=== PATIENT | female | born 1965 | race Caucasian/White ===

== ENCOUNTER 2019-01-09 09:07 | Emergency (ER) | payer OTHER ==
[~2019-01-09 09:07] MED LIST: Sodium Chloride 0.9% 1,000 ML BAG ONE
[2019-01-09] MEDS ORDERED: Midazolam HCl 10 mg/2 ml Vial ONE (09:41)
[2019-01-09 09:53] LABS: Bilirubin Small (Negative); Blood, Urine Negative (Negative); Clarity Clear (Clear); Glucose, Urine (Dipstick) Negative (Negative); Leukocyte Negative (Negative); Nitrite Negative (Negative); Protein, Urine (Dipstick) Trace mg/dL (Neg-Trace); Specific Gravity, Urine 1.015 (1.005-1.030); Urobilinogen > or = 8.0 mg/dL (0.2-1.0); pH, Urine 6.5 (5.0-9.0)
[2019-01-09 10:00] LABS: Cocaine Metabolite Screen Detected (NotDetected); THC/Cannabinoid Screen Detected (NotDetected)
[2019-01-09 10:01] LABS: Amphetamine Detected (NotDetected); Barbiturates Screen Not Detected (NotDetected); Benzodiazepine Screen Not Detected (NotDetected); Medtox Control Line Valid? VALID (VALID); Methadone Not Detected (NotDetected); Methamphetamine Detected (NotDetected); Opiate Screen Detected (NotDetected); Oxycodone Screen Not Detected (NotDetected); Phencyclidine (PCP) Not Detected (NotDetected); Tricyclic Screen Not Detected (NotDetected)
[2019-01-09] MEDS ORDERED: Acetaminophen 650 MG Suppository ONE (10:01)
[2019-01-09] MEDS ORDERED: Iopamidol 370 76% 75 ML VIAL FS ONE (10:09)
[2019-01-09 10:36] LABS: ALT (SGPT) 37 U/L (8-55); AST (SGOT) 49 U/L (5-34); Albumin 3.6 g/dL (3.5-5.0); Alkaline Phosphatase 121 U/L (40-150); Anion Gap 13 mmol/L (10-20); BUN (Urea Nitrogen) 19 mg/dL (9.8-20.1); Bilirubin, Total 3.3 mg/dL (0.2-1.2); Calc. Creatinine Clearance 0 mL/min (70-130); Calcium 8.7 mg/dL (7.8-10.44); Carbon Dioxide 24 mmol/L (22-29); Chloride 110 mmol/L (98-107); Estimated GFR-MDRD 78; Globulin 2.9 g/dL (2.4-3.5); Glucose 115 mg/dL (70-105); Potassium 3.3 mmol/L (3.5-5.1); Protein, Total 6.5 g/dL (6.0-8.3); Sodium 144 mmol/L (136-145)
[2019-01-09 10:37] LABS: Acetaminophen Less than 6.0 mcg/mL (10.0-30.0); Alcohol Less than 10 mg/dL (Less than 10); CK (CPK) 505 U/L (29-168); Salicylate Less than 8.0 mg/dL (15.0-30.0)
[2019-01-09 10:38] LABS: #Lymphocytes 1.3 thou/uL (1.20-3.40); #Monocytes 0.5 thou/uL (0.11-0.59); #Neutrophils 7.2 thou/uL (1.40-6.50); %Basophils 0.3 % (0.0-1.0); %Lymphocytes 14.7 % (21.0-51.0); %Monocytes 5.2 % (0.0-10.0); %Neutrophils 79.8 % (42.0-75.0); Hemoglobin 14.3 g/dL (12.0-16.0); Mean Corpuscular HGB CONC 32.8 g/dL (32.0-36.0); Mean Corpuscular Hemoglobin 30.9 pg (27.0-31.0); Mean Corpuscular Volume 94.2 fL (78.0-98.0); Platelet Count 93 thou/uL (130-400); Platelet Morphology Comment Appears Decreased; RBC Distribution Width 13.3 % (11.5-14.5); Red Blood Cell (RBC) Count 4.63 mill/uL (4.20-5.40)
--- NOTE | 2019-01-09 10:54 | CT ---
CT OF THE BRAIN WITHOUT CONTRAST: Date: 01/09/19 COMPARISON: 05/24/16. HISTORY: Unable to communicate. custodial patient. Altered mental status. Unknown trauma. TECHNIQUE: Multiple contiguous axial images were obtained in a CT of the brain without contrast. FINDINGS: The brain is normal in morphology and attenuation without focal lesions or confluent areas of infarct ion. There is no evidence of hydrocephalus, intracranial hemorrhage, or extra-axial fluid collection. The calvarium and overlying soft tissues are unremarkable. The visualized paranasal sinuses and masto id air cells are well aerated. IMPRESSION: No evidence of acute intracranial abnormality. POS: [facility]
--- NOTE | 2019-01-09 10:58 | CT ---
CT OF FACIAL BONES: Date: 01/09/19 COMPARISON: None. HISTORY: Injury, trauma, pain. TECHNIQUE: Axial CT imaging obtained at 2.5 mm intervals through the facial bones without contrast with coronal and sagittal reformatted imaging. FINDINGS: The imaged brain parenchyma demonstrates a mild degree of diffuse cerebral volume loss. The frontal sinuses, maxillary sinuses, ethmoid air cells, sphenoid sinuses, and imaged mastoid air c ells appear grossly unremarkable. 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 There is no evidence for acute fracture of either nasal bone or zygomatic arch. Pterygoid plates appe ar intact. Motion artifact limits detailed assessment of the mandible. No mandibular fracture or evid ence of temporomandibular joint dislocation is evident within the limitations of this exam. Motion ar tifact limits detailed assessment of the upper cervical spine. There is degenerative change at the at lantoaxial interspace. The coronal reformatted imaging demonstrates no evidence for an acute fracture of the orbital floor or medial orbital wall on either side. IMPRESSION: Chronic findings as described above. No acute fracture or evidence of dislocation. POS: [facility]
[2019-01-09] MEDS ORDERED: metroNIDAZOLE 500 MG/100 ML BAG ONE (11:12)
--- NOTE | 2019-01-09 11:24 | CT ---
CT CHEST AND ABDOMEN AND PELVIS WITH CONTRAST: HISTORY: Pain to palpation. Altered mental status. Pain over all quadrants. FINDINGS: CHEST: Contrast enhanced CT images of the chest and abdomen and pelvis demonstrate right 2nd and 3rd rib plates with screws in place. The mediastinum is unremarkable. No evidence of axillary or hilar lymphadenopathy is seen. No definite evidence of pulmonary parenchymal lesions seen. Numerous left upper extremity collateral vessels seen. This may represent left subclavian venous stenosis with se condary collateral formation. ABDOMEN AND PELVIS: The liver and spleen are unremarkable. The gallbladder and pancreas are unremar kable. The adrenal glands are unremarkable. The kidneys are unremarkable. No dilated loops of smal l bowel seen. A normal appendix is visualized. There is abnormal thickening of the colon, involving the ascending, transverse and descending colon. This may represent possible changes of colitis. A left SI joint transosseous fusion screw is in place. Left hip arthroplasty changes and hardware in p lace. IMPRESSION: Abnormal thickening of the colonic wall, concerning for colitis. POS: [facility]
== END 2019-01-09 11:44 | disposition short-term general hospital (02) ==
LOC: MADERS 09:07
DX: F15.10 Other stimulant abuse, uncomplicated (principal); E05.90 Thyrotoxicosis, unspecified without thyrotoxic crisis or storm; E03.9 Hypothyroidism, unspecified; E78.5 Hyperlipidemia, unspecified; J45.909 Unspecified asthma, uncomplicated; F20.9 Schizophrenia, unspecified; K52.9 Noninfective gastroenteritis and colitis, unspecified
CPT/HCPCS: 51702; 70450; 70486; 71260; 74177; 80053; 80306; 80307; 81003; 82550; 83605; 84443; 84484; 85025; 87040; 87077; 87086; 87149; 87186; 87804; 93005; 96361; 96365; 96375; 96376; J2250; J7050

== ENCOUNTER 2019-03-23 13:26 | Emergency (ER) | payer OTHER | END 2019-03-23 14:40 | disposition home or self-care (01) | LOC: MADERS 13:26 | DX: Z76.0 Encounter for issue of repeat prescription (principal); E03.9 Hypothyroidism, unspecified; E78.5 Hyperlipidemia, unspecified; J45.909 Unspecified asthma, uncomplicated; F41.9 Anxiety disorder, unspecified; F20.9 Schizophrenia, unspecified; F31.9 Bipolar disorder, unspecified; F17.210 Nicotine dependence, cigarettes, uncomplicated; Z79.899 Other long term (current) drug therapy | CPT/HCPCS: 99281 ==

== ENCOUNTER 2019-04-24 08:01 | Emergency (ER) | payer OTHER | END 2019-04-24 08:45 | disposition home or self-care (01) | LOC: MADERS 08:01 | DX: Z76.0 Encounter for issue of repeat prescription (principal); E03.9 Hypothyroidism, unspecified; E78.5 Hyperlipidemia, unspecified; J44.9 Chronic obstructive pulmonary disease, unspecified; F41.9 Anxiety disorder, unspecified; F20.9 Schizophrenia, unspecified; F31.9 Bipolar disorder, unspecified; F17.210 Nicotine dependence, cigarettes, uncomplicated; Z79.899 Other long term (current) drug therapy | CPT/HCPCS: 99281 ==

== ENCOUNTER 2019-09-25 20:04 | Emergency (ER) | payer OTHER ==
[~2019-09-25 20:04] MED LIST changes: +Norepinephrine 4 MG/4 ML VIAL ONE; -Sodium Chloride 0.9% 1,000 ML BAG ONE
[2019-09-25] MEDS ORDERED: Ondansetron PF 4 MG/2 ML Vial ONE (20:22)
[2019-09-25] MEDS ORDERED: Sodium Chloride 0.9% 1,000 ML ONE ×4 (20:34→21:52)
[2019-09-25] MEDS ORDERED: Norepinephrine 4 MG/4 ML VIAL ONE ×2 (21:36→22:25)
[2019-09-25] MEDS ORDERED: Piperacillin/Tazobactam 4.5 GM VIAL ONE (21:36)
[2019-09-25] MEDS ORDERED: Sodium Chloride 0.9% 100 ML ONE (21:37)
[2019-09-25 21:39] LABS: #Lymphocytes 1.4 thou/uL (1.20-3.40); #Monocytes 0.4 thou/uL (0.11-0.59); #Neutrophils 4.5 thou/uL (1.40-6.50); %Basophils 0.6 % (0.0-1.0); %Eosinophils 0.3 % (0.0-10.0); %Lymphocytes 21.7 % (21.0-51.0); %Monocytes 5.8 % (0.0-10.0); %Neutrophils 71.5 % (42.0-75.0); Hemoglobin 9.3 g/dL (12.0-16.0); Mean Corpuscular HGB CONC 31.4 g/dL (32.0-36.0); Mean Corpuscular Hemoglobin 30.4 pg (27.0-31.0); Mean Corpuscular Volume 96.8 fL (78.0-98.0); Mean Platelet Volume 8.2 fL (7.4-10.4); RBC Distribution Width 13.7 % (11.5-14.5); Red Blood Cell (RBC) Count 3.06 mill/uL (4.20-5.40); White Blood Cell (WBC) Count 6.2 thou/uL (4.8-10.8)
[2019-09-25 21:45] LABS: Bilirubin Moderate (Negative); Blood, Urine Negative (Negative); Clarity Slightly Cloudy (Clear); Glucose, Urine (Dipstick) 100 mg/dL (Negative); Leukocyte Negative (Negative); Nitrite Positive (Negative); Protein, Urine (Dipstick) 100 mg/dL (Neg-Trace)
[2019-09-25 21:51] LABS: ALT (SGPT) 45 U/L (8-55); AST (SGOT) 47 U/L (5-34); Albumin 2.5 g/dL (3.5-5.0); Alkaline Phosphatase 93 U/L (40-110); Anion Gap 13 mmol/L (10-20); BUN (Urea Nitrogen) 11 mg/dL (9.8-20.1); Bilirubin, Total 2.9 mg/dL (0.2-1.2); Calc. Creatinine Clearance 0 mL/min (70-130); Carbon Dioxide 23 mmol/L (22-29); Chloride 112 mmol/L (98-107); Estimated GFR-MDRD 52; Globulin 2.2 g/dL (2.4-3.5); Glucose 144 mg/dL (70-105); Lipase 7 U/L (8-78); Other Microscopic Description Less than 2 mL rec'd; Potassium 3.4 mmol/L (3.5-5.1); Protein, Total 4.7 g/dL (6.0-8.3); Sodium 145 mmol/L (136-145)
[2019-09-25 21:59] LABS: RBC/HPF None Seen HPF (0-3)
[2019-09-25 22:00] LABS: Bacteria/HPF Rare-Few HPF (None Seen); Squamous Epithelial 0-3 HPF (0-3); WBC/HPF 0-3 HPF (0-3)
--- NOTE | 2019-09-25 22:14 | CT ---
CT abdomen and pelvis noncontrast HISTORY: Abdomen pain. COMPARISON: 01/09/2019. FINDINGS: Each renal collecting system, ureter, and urinary bladder are decompressed without stone ev ident. Lack of contrast limits evaluation for other abnormalities. Gallbladder is distended up to 11.2 cm wi thout focal abnormality apparent. Small amount of slightly hyperdense fluid surrounds the liver and spleen. More hyperdense fluid is present within the pelvis. Just above the level of the uterus is a c luster of cystic lesions. Overall, this cluster of cysts measures up to 10.9 cm x 5.3 cm on the axial images. The largest of the individual cysts measures up to 4.5 cm. On the prior CT, only a very small follicle was evident at this level. There are prominent degenerative changes of lumbar spine. Calcification within the arterial structures. IMPRESSION: Hyperdense fluid within the pelvis and, to a lesser extent, the abdomen, is favored to be blood. Most likely source is the new multiloculated cystic mass within the pelvis. 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 Gallbladder distention without other abnormality. Clinical correlation regarding other signs and symp toms of acute cholecystitis is required. Findings were called to Dr. Ravi in [place] at the time of the exam. 2004 hours. Code CR. Transcribed Date/Time: 09/25/2019 11:10 PM
[2019-09-25 22:18] LABS: Manual Diff?? NO
[2019-09-25 22:28] LABS: CKMB 0.4 ng/mL (0-6.6)
== END 2019-09-25 22:08 | disposition short-term general hospital (02) ==
LOC: MADERS 20:04
DX: A41.9 Sepsis, unspecified organism (principal); R65.21 Severe sepsis with septic shock; R11.2 Nausea with vomiting, unspecified; R10.9 Unspecified abdominal pain; E03.9 Hypothyroidism, unspecified; E78.5 Hyperlipidemia, unspecified; E78.00 Pure hypercholesterolemia, unspecified; J44.9 Chronic obstructive pulmonary disease, unspecified; F41.9 Anxiety disorder, unspecified; F20.9 Schizophrenia, unspecified; F31.9 Bipolar disorder, unspecified; F17.210 Nicotine dependence, cigarettes, uncomplicated; Z79.899 Other long term (current) drug therapy; Z79.891 Long term (current) use of opiate analgesic
CPT/HCPCS: 74176; 80053; 81003; 81015; 82553; 83605; 83690; 84484; 85025; 87086; 93005; A4353; J2405; J2543; J3490; J7050; J7070

== ENCOUNTER 2020-05-15 09:04 | Emergency (ER) | payer OTHER ==
[2020-05-15] MEDS ORDERED: Lorazepam 2 MG/ML VIAL ONE (09:33)
[2020-05-15] MEDS ORDERED: Sodium Chloride 0.9% 0 ML ONE (09:33)
[2020-05-15 10:00] LABS: #Basophils 0.2 thou/uL (0.0-0.2); #Eosinphils 0.3 thou/uL (0.0-0.7); #Lymphocytes 2.8 thou/uL (1.20-3.40); #Monocytes 1.2 thou/uL (0.11-0.59); #Neutrophils 14.9 thou/uL (1.40-6.50); %Basophils 0.8 % (0.0-1.0); %Eosinophils 1.4 % (0.0-10.0); %Lymphocytes 14.6 % (21.0-51.0); %Neutrophils 77.2 % (42.0-75.0); Mean Corpuscular HGB CONC 30.7 g/dL (32.0-36.0); Mean Corpuscular Hemoglobin 27.8 pg (27.0-31.0); Mean Corpuscular Volume 90.4 fL (78.0-98.0); Platelet Count 181 thou/uL (130-400); Red Blood Cell (RBC) Count 5.76 mill/uL (4.20-5.40); White Blood Cell (WBC) Count 19.3 thou/uL (4.8-10.8)
[2020-05-15 10:19] LABS: ALT (SGPT) 59 U/L (8-55); AST (SGOT) 53 U/L (5-34); Albumin 4.4 g/dL (3.5-5.0); Alkaline Phosphatase 131 U/L (40-110); Anion Gap 21 mmol/L (10-20); BUN (Urea Nitrogen) 16 mg/dL (9.8-20.1); Bilirubin, Total 1.7 mg/dL (0.2-1.2); Calc. Creatinine Clearance 0 mL/min (70-130); Calcium 9.7 mg/dL (7.8-10.44); Carbon Dioxide 22 mmol/L (22-29); Chloride 103 mmol/L (98-107); Estimated GFR-MDRD 31; Globulin 3.3 g/dL (2.4-3.5); Glucose 110 mg/dL (70-105); Potassium 3.5 mmol/L (3.5-5.1); Protein, Total 7.7 g/dL (6.0-8.3); Sodium 142 mmol/L (136-145)
[2020-05-15 10:20] LABS: Acetaminophen Less than 6.0 mcg/mL (10.0-30.0); Alcohol Less than 10 mg/dL (Less than 10); CK (CPK) 143 U/L (29-168); Salicylate Less than 8.0 mg/dL (15.0-30.0)
[2020-05-15 10:43] LABS: CKMB 1.8 ng/mL (0-6.6)
[2020-05-15] MEDS ORDERED: Aspirin 325 MG TAB ONE (11:31)
[2020-05-15 11:42] LABS: Bilirubin Moderate (Negative); Blood, Urine Negative (Negative); Glucose, Urine (Dipstick) Negative (Negative); Ketone, Urine Negative (Negative); Leukocyte Negative (Negative); Nitrite Negative (Negative); Protein, Urine (Dipstick) 100 mg/dL (Neg-Trace)
[2020-05-15 11:44] LABS: Clarity Hazy (Clear); Specific Gravity, Urine 1.025 (1.002-1.036)
[2020-05-15 11:49] LABS: Cocaine Metabolite Screen Not Detected (NotDetected); Methamphetamine Detected (NotDetected); Phencyclidine (PCP) Detected (NotDetected); THC/Cannabinoid Screen Detected (NotDetected)
[2020-05-15 11:50] LABS: Amphetamine Detected (NotDetected); Barbiturates Screen Not Detected (NotDetected); Benzodiazepine Screen Detected (NotDetected); Medtox Control Line Valid? VALID (VALID); Methadone Not Detected (NotDetected); Opiate Screen Detected (NotDetected); Oxycodone Screen Not Detected (NotDetected); Tricyclic Screen Detected (NotDetected)
[2020-05-15 12:00] LABS: Bacteria/HPF Rare-Few HPF (None Seen); Mucous/LPF 2+ LPF (<2+); RBC/HPF 0-3 HPF (0-3); WBC/HPF None Seen HPF (0-3)
== END 2020-05-15 12:35 | disposition short-term general hospital (02) ==
LOC: MADERS 09:04
DX: R41.0 Disorientation, unspecified (principal); F15.10 Other stimulant abuse, uncomplicated; F11.10 Opioid abuse, uncomplicated; F12.10 Cannabis abuse, uncomplicated; F19.10 Other psychoactive substance abuse, uncomplicated; F13.10 Sedative, hypnotic or anxiolytic abuse, uncomplicated; R74.8 Abnormal levels of other serum enzymes; E03.9 Hypothyroidism, unspecified; E78.5 Hyperlipidemia, unspecified; E78.00 Pure hypercholesterolemia, unspecified; J44.9 Chronic obstructive pulmonary disease, unspecified; F17.210 Nicotine dependence, cigarettes, uncomplicated; Z79.899 Other long term (current) drug therapy
CPT/HCPCS: 36415; 51701; 80053; 80306; 80307; 81003; 81015; 82550; 82553; 84443; 84484; 85025; 93005; 94760; J2060; J7050

== ENCOUNTER 2020-05-20 11:49 | Emergency (ER) | payer OTHER ==
[~2020-05-20 11:49] MED LIST changes: -Norepinephrine 4 MG/4 ML VIAL ONE; +Sodium Chloride 0.9% 1,000 ML BAG ONE
[2020-05-20 12:27] LABS: #Basophils 0.1 thou/uL (0.0-0.2); #Eosinphils 0.1 thou/uL (0.0-0.7); #Lymphocytes 1.4 thou/uL (1.20-3.40); #Monocytes 0.3 thou/uL (0.11-0.59); #Neutrophils 3.8 thou/uL (1.40-6.50); %Basophils 1.1 % (0.0-1.0); %Eosinophils 1.6 % (0.0-10.0); %Lymphocytes 24.2 % (21.0-51.0); %Monocytes 5.1 % (0.0-10.0); %Neutrophils 68.1 % (42.0-75.0); Hemoglobin 12.9 g/dL (12.0-16.0); Mean Corpuscular HGB CONC 31.6 g/dL (32.0-36.0); Mean Corpuscular Hemoglobin 28.7 pg (27.0-31.0); Mean Corpuscular Volume 90.8 fL (78.0-98.0); Mean Platelet Volume 8.8 fL (7.4-10.4); Platelet Count 97 thou/uL (130-400); RBC Distribution Width 14.9 % (11.5-14.5); Red Blood Cell (RBC) Count 4.48 mill/uL (4.20-5.40); White Blood Cell (WBC) Count 5.6 thou/uL (4.8-10.8)
[2020-05-20 12:28] LABS: ALT (SGPT) 54 U/L (8-55); AST (SGOT) 52 U/L (5-34); Albumin 3.3 g/dL (3.5-5.0); Alkaline Phosphatase 90 U/L (40-110); Anion Gap 16 mmol/L (10-20); BUN (Urea Nitrogen) 8 mg/dL (9.8-20.1); Bilirubin, Total 0.9 mg/dL (0.2-1.2); Calc. Creatinine Clearance 0 mL/min (70-130); Calcium 8.2 mg/dL (7.8-10.44); Carbon Dioxide 20 mmol/L (22-29); Chloride 105 mmol/L (98-107); Estimated GFR-MDRD 56; Globulin 2.4 g/dL (2.4-3.5); Glucose 136 mg/dL (70-105); Lipase 40 U/L (8-78); Potassium 3.2 mmol/L (3.5-5.1); Protein, Total 5.7 g/dL (6.0-8.3); Sodium 138 mmol/L (136-145)
[2020-05-20 12:29] LABS: Acetaminophen Less than 6.0 mcg/mL (10.0-30.0); Alcohol Less than 10 mg/dL (Less than 10); Salicylate Less than 8.0 mg/dL (15.0-30.0)
[2020-05-20 12:33] LABS: Bilirubin Small (Negative); Blood, Urine Negative (Negative); Clarity Clear (Clear); Glucose, Urine (Dipstick) Negative (Negative); Ketone, Urine Trace mg/dL (Negative); Leukocyte Negative (Negative); Nitrite Negative (Negative); Protein, Urine (Dipstick) 30 mg/dL (Neg-Trace); Specific Gravity, Urine 1.025 (1.005-1.030); pH, Urine 5.5 (5.0-9.0)
[2020-05-20 12:45] LABS: Platelet Morphology Comment Appears Adequate
[2020-05-20 12:46] LABS: RBC Morphology Normal
[2020-05-20 12:49] LABS: Bacteria/HPF Rare-Few HPF (None Seen); RBC/HPF 0-3 HPF (0-3); Squamous Epithelial 0-3 HPF (0-3); WBC/HPF 0-3 HPF (0-3)
--- NOTE | 2020-05-20 12:57 | CT ---
CT BRAIN WITHOUT CONTRAST: HISTORY: Altered mental status. Possible drug overdose COMPARISON: 01/09/2019 FINDINGS: No evidence of acute infarct, hemorrhage, midline shift or abnormal extra-axial fluid collections is seen. The ventricular size is appropriate and the basilar cisterns are patent. The bony calvarium is intact. The visualized paranasal sinuses and mastoid air cells are well aerated. A right ocular pr osthesis is again seen. IMPRESSION: No CT evidence of acute intracranial process.
[2020-05-20 13:06] LABS: THC/Cannabinoid Screen Detected (NotDetected)
[2020-05-20 13:07] LABS: Amphetamine Detected (NotDetected); Benzodiazepine Screen Detected (NotDetected); Cocaine Metabolite Screen Not Detected (NotDetected); Methamphetamine Detected (NotDetected); Opiate Screen Detected (NotDetected); Phencyclidine (PCP) Not Detected (NotDetected); Tricyclic Screen Detected (NotDetected)
[2020-05-20 13:08] LABS: Barbiturates Screen Not Detected (NotDetected); Medtox Control Line Valid? VALID (VALID); Methadone Not Detected (NotDetected); Oxycodone Screen Not Detected (NotDetected)
--- NOTE | 2020-05-20 13:55 | RAD ---
EXAM: CHEST ONE VIEW PORTABLE: 05/20/20 HISTORY: Dyspnea. COMPARISON: 03/16/20 FINDINGS: Postop fixation changes involving the right second and third anterior ribs, stable. No confluent pneu monia, overt edema, or pleural effusion. IMPRESSION: Overall stable chest. No new process from 03/16/20. POS: [facility]
[2020-05-20] MEDS ORDERED: Naloxone HCl 0.4 mg/ml Vial ONE (14:01)
[2020-05-20 14:37] LABS: Base Excess-Venous -0.9 mmol/L (-2.0 to 3.0); Bicarbonate (HCO3v) 26.1 mmol/L (22.0-28.0); CO2 Tension (PvCO2) 51.3 mmHg (40.0-50.0); Calcium, Ionized 1.03 mmol/L (See Comments:); Chloride 110 mmol/L (98-107); Hemoglobin - Calc 14.7 g/dL (12.0-16.0); Potassium 3.7 mmol/L (3.5-5.1); Sodium 144 mmol/L (138-145); T. Carbon Dioxide 27.7 mmol/L (22.0-28.0); vO2 Saturation-calc 99.6 % (60.0-85.0)
[2020-05-20] MEDS ORDERED: Naloxone HCl 2 mg/2 ml Syringe ONE ×2 (14:51→14:54)
[2020-05-20] MEDS ORDERED: Sodium Chloride 0.9% 500 ML ONE (14:55)
== END 2020-05-20 15:09 | disposition short-term general hospital (02) ==
LOC: MADERS 11:49
DX: T40.2X1A Poisoning by other opioids, accidental (unintentional), initial encounter (principal); E03.9 Hypothyroidism, unspecified; E78.5 Hyperlipidemia, unspecified; E78.00 Pure hypercholesterolemia, unspecified; J44.9 Chronic obstructive pulmonary disease, unspecified; F31.9 Bipolar disorder, unspecified; F41.9 Anxiety disorder, unspecified; F20.9 Schizophrenia, unspecified; F17.210 Nicotine dependence, cigarettes, uncomplicated; Z79.899 Other long term (current) drug therapy; Z79.51 Long term (current) use of inhaled steroids
CPT/HCPCS: 36415; 51701; 70450; 71045; 80053; 80306; 80307; 81003; 81015; 82330; 82803; 83605; 83690; 83735; 83880; 84484; 85025; 93005; 96361; 96374; 96376; J2310; J7030; J7050

== ENCOUNTER 2021-04-18 09:56 | Emergency (ER) | payer OTHER ==
[2021-04-18 10:11] LABS: Bilirubin Negative (Negative); Blood, Urine Negative (Negative); Clarity Clear (Clear); Glucose, Urine (Dipstick) Negative (Negative); Ketone, Urine Negative (Negative); Leukocyte Negative (Negative); Nitrite Negative (Negative); Protein, Urine (Dipstick) Negative (Neg-Trace); Urobilinogen > or = 8.0 mg/dL (Less than 2)
== END 2021-04-18 10:53 | disposition home or self-care (01) ==
LOC: MADERS 09:56
DX: G89.29 Other chronic pain (principal); M54.5 Low back pain; R35.0 Frequency of micturition; E03.9 Hypothyroidism, unspecified; E78.5 Hyperlipidemia, unspecified; E78.00 Pure hypercholesterolemia, unspecified; J44.9 Chronic obstructive pulmonary disease, unspecified; F17.210 Nicotine dependence, cigarettes, uncomplicated; Z79.51 Long term (current) use of inhaled steroids; Z79.899 Other long term (current) drug therapy
CPT/HCPCS: 81003; 87086; 99281

== ENCOUNTER 2021-11-02 02:30 | Emergency (ER) | payer OTHER | END 2021-11-02 02:55 | disposition home or self-care (01) | LOC: MADERS 02:30 | DX: F20.9 Schizophrenia, unspecified (principal); E03.9 Hypothyroidism, unspecified; E78.5 Hyperlipidemia, unspecified; E78.00 Pure hypercholesterolemia, unspecified; J44.9 Chronic obstructive pulmonary disease, unspecified; F17.210 Nicotine dependence, cigarettes, uncomplicated | CPT/HCPCS: 99284 ==

== ENCOUNTER 2021-11-03 02:26 | Emergency (ER) | payer OTHER ==
[2021-11-03] MEDS ORDERED: Mag-Al Plus 1200 MG/1200 MG/120 MG/30 ML UDCUP ONE (02:30)
[2021-11-03] MEDS ORDERED: Lidocaine Viscous Sol 2% 15 ml UD Cup ONE (02:30)
== END 2021-11-03 05:30 | disposition left against medical advice (07) ==
LOC: MADERS 02:26
DX: K21.9 Gastro-esophageal reflux disease without esophagitis (principal); F20.9 Schizophrenia, unspecified; E03.9 Hypothyroidism, unspecified; E78.5 Hyperlipidemia, unspecified; J44.9 Chronic obstructive pulmonary disease, unspecified; F17.210 Nicotine dependence, cigarettes, uncomplicated; F31.9 Bipolar disorder, unspecified; F41.9 Anxiety disorder, unspecified
CPT/HCPCS: 99284

== ENCOUNTER 2022-01-19 15:15 | Emergency (ER) | payer OTHER ==
[2022-01-19] MEDS ORDERED: Lorazepam 2 MG/ML VIAL ONE (15:49)
[2022-01-19] MEDS ORDERED: Bacitracin 1 PK ONE (15:51)
[2022-01-19] MEDS ORDERED: diphenhydrAMINE 50 MG/ML VIAL ONE (16:18)
[2022-01-19] MEDS ORDERED: Haloperidol Lactate 5 MG/ML VIAL ONE (16:18)
[2022-01-19 17:03] LABS: Anion Gap 19 mmol/L (10-20); BUN (Urea Nitrogen) 18 mg/dL (9.8-20.1); Bilirubin, Total 2.9 mg/dL (0.2-1.2); Calc. Creatinine Clearance 0 mL/min (70-130); Calcium 8.7 mg/dL (7.8-10.44); Carbon Dioxide 22 mmol/L (22-29); Chloride 110 mmol/L (98-107); Glucose 117 mg/dL (70-105); Potassium 3.1 mmol/L (3.5-5.1); Protein, Total 7.2 g/dL (6.0-8.3); Sodium 148 mmol/L (136-145)
[2022-01-19 17:04] LABS: ALT (SGPT) 73 U/L (8-55); AST (SGOT) 92 U/L (5-34); Acetaminophen Less than 6.0 mcg/mL (10.0-30.0); Alcohol Less than 10 mg/dL (Less than 10); Alkaline Phosphatase 136 U/L (40-110); CK (CPK) 1351 U/L (29-168); Globulin 3.2 g/dL (2.4-3.5); Magnesium 1.9 mg/dL (1.6-2.6); Salicylate Less than 8.0 mg/dL (15.0-30.0)
[2022-01-19 17:05] LABS: #Lymphocytes 1.6 thou/uL (1.20-3.40); #Monocytes 0.6 thou/uL (0.11-0.59); #Neutrophils 7.7 thou/uL (1.40-6.50); %Basophils 0.2 % (0.0-1.0); %Lymphocytes 15.9 % (21.0-51.0); %Monocytes 5.8 % (0.0-10.0); %Neutrophils 78.1 % (42.0-75.0); Base Excess-Venous 2.1 mmol/L (-2.0 to 3.0); Bicarbonate (HCO3v) 25.8 mmol/L (22.0-28.0); CO2 Tension (PvCO2) 36.9 mmHg (42.0-51.0); Calcium, Ionized 0.98 mmol/L (1.15-1.33); Chloride 113 mmol/L (98-107); Hemoglobin 16.2 g/dL (12.0-16.0); Hemoglobin - Calc 15.9 g/dL (12.0-16.0); Mean Corpuscular Hemoglobin 30.4 pg (27.0-31.0); Mean Corpuscular Volume 92.2 fL (78.0-98.0); Mean Platelet Volume 7.2 fL (7.4-10.4); Platelet Count 90 thou/uL (130-400); Potassium 3.4 mmol/L (3.5-5.1); RBC Distribution Width 13.3 % (11.5-14.5); Red Blood Cell (RBC) Count 5.34 mill/uL (4.20-5.40); Sodium 150 mmol/L (138-145); White Blood Cell (WBC) Count 9.9 thou/uL (4.8-10.8); vO2 Saturation-calc 97.4 % (60.0-85.0)
[2022-01-19 17:15] LABS: Platelet Morphology Comment Appears Decreased
[2022-01-19 17:16] LABS: Anisocytosis SLIGHT = 6-15 cells (100X) (0-5/hpf)
[2022-01-19 17:28] LABS: CKMB 8.8 ng/mL (0-6.6)
[2022-01-19 18:01] LABS: Bilirubin Small (Negative); Blood, Urine Trace (Negative); Glucose, Urine (Dipstick) Negative (Negative); Ketone, Urine Trace mg/dL (Negative); Leukocyte Negative (Negative); Nitrite Positive (Negative); Protein, Urine (Dipstick) 100 mg/dL (Neg-Trace); pH, Urine 6.5 (5.0-9.0)
[2022-01-19 18:07] LABS: Bacteria/HPF 1+ HPF (None Seen); Clarity Hazy (Clear); RBC/HPF 0-3 HPF (0-3); Squamous Epithelial 0-3 HPF (0-3); WBC/HPF 0-3 HPF (0-3)
[2022-01-19 18:08] LABS: Amphetamine Not Detected (NotDetected); Barbiturates Screen Not Detected (NotDetected); Benzodiazepine Screen Not Detected (NotDetected); Cocaine Metabolite Screen Not Detected (NotDetected); Medtox Control Line Valid? VALID (VALID); Methadone Not Detected (NotDetected); Methamphetamine Not Detected (NotDetected); Opiate Screen Not Detected (NotDetected); Oxycodone Screen Not Detected (NotDetected); Phencyclidine (PCP) Not Detected (NotDetected); THC/Cannabinoid Screen Detected (NotDetected); Tricyclic Screen Not Detected (NotDetected)
[2022-01-19] MEDS ORDERED: Sodium Chloride 0.9% 100 ML ONE (18:20)
[2022-01-19] MEDS ORDERED: cefTRIAXone\\ROCEPHIN 2 GM VIAL ONE (18:20)
[2022-01-19] MEDS ORDERED: Sodium Chloride 0.9% 250 ML 250 ML ONE (18:56)
[2022-01-19] MEDS ORDERED: Ketorolac Tromethamine 30 MG/ML VIAL ONE (18:56)
== END 2022-01-19 19:27 | disposition short-term general hospital (02) ==
LOC: MADERS 15:15
DX: A41.9 Sepsis, unspecified organism (principal); R41.82 Altered mental status, unspecified; G93.40 Encephalopathy, unspecified; E87.0 Hyperosmolality and hypernatremia; M62.82 Rhabdomyolysis; N39.0 Urinary tract infection, site not specified; E03.9 Hypothyroidism, unspecified; E78.5 Hyperlipidemia, unspecified; J44.9 Chronic obstructive pulmonary disease, unspecified; F17.210 Nicotine dependence, cigarettes, uncomplicated
CPT/HCPCS: 36415; 51702; 51798; 70450; 71045; 80053; 80306; 80307; 81003; 81015; 82330; 82550; 82553; 82803; 83605; 83690; 83735; 83880; 84484; 85025; 87086; 93005; 96365; 96372; 96374; 96375; 99292; J0696; J1200; J1630; J1885; J2060; J3490; J7050